=== PATIENT | female | born 2000 | race Caucasian/White ===

== ENCOUNTER 2022-10-31 15:34 | Emergency (ER) | payer MEDICAID, OTHER ==
[~2022-10-31] VITALS: Ht 157.5 cm; Wt 47.0 kg
[2022-10-31 15:38] VITALS: O2SAT 98
[2022-10-31] MEDS ORDERED: ONDANSETRON 4MG ODT PO ONE (18:00)
[2022-10-31] MEDS ORDERED: IBUP-2028 MT (19:19)
[2022-10-31] MEDS ORDERED: TOPUD PO (19:19)
[2022-10-31] MEDS ORDERED: IBUPROFEN 400MG TABLET PO ONE (19:30)
[2022-10-31 19:54] VITALS: BP 126/71; PULSE 84; RESP 18; TEMP 98.7
== END 2022-10-31 19:55 | disposition home or self-care (01) ==
LOC: ER 15:34
DX: R51.9 Headache, unspecified (principal); R11.0 Nausea; V49.59XA Passenger injured in collision with other motor vehicles in traffic accident, initial encounter; Y93.89 Activity, other specified; Y92.89 Other specified places as the place of occurrence of the external cause; Y99.8 Other external cause status
CPT/HCPCS: 99284; 70450; 81025; Q0162